=== PATIENT | male | born 1990 | race African-American/Black ===

== ENCOUNTER 2022-02-12 10:29 | Emergency (ER) | payer MEDICAID ==
[~2022-02-12] VITALS: Ht 195.6 cm; Wt 87.0 kg
[2022-02-12 10:47] VITALS: BP 110/74
[2022-02-12] MEDS ORDERED: KETOROLAC 60MG/2ML VIAL IM ONE (12:00)
[2022-02-12] MEDS ORDERED: IBUP-2029 MT (12:13)
== END 2022-02-12 12:43 | disposition home or self-care (01) ==
LOC: ER 10:29
DX: S80.811A Abrasion, right lower leg, initial encounter (principal); M77.9 Enthesopathy, unspecified; X58.XXXA Exposure to other specified factors, initial encounter; Y93.89 Activity, other specified; Y92.018 Other place in single-family (private) house as the place of occurrence of the external cause
CPT/HCPCS: 73590; 96372; 99283; J1885